=== PATIENT | male | born 1950 | race Caucasian/White ===

== ENCOUNTER 2020-05-04 06:09 | Day surgery (SDC) | payer OTHER, BC ==
--- NOTE | 2020-05-01 12:23 | RAD REPORT ---
EXAM DESCRIPTION: RAD - Chest Pa And Lat (2 Views) - 05/01/2020 12:13 pm CLINICAL HISTORY: pre op Chest pain. COMPARISON: No comparisons TECHNIQUE: PA and lateral views of the chest were obtained. FINDINGS: The lungs are hyperexpanded compatible with COPD. The heart is upper limit of normal in si ze. No fracture or aggressive bony process. IMPRESSION: COPD without acute process identified.
[2020-05-01 12:45] LABS: Absolute Lymphocytes (CBC) 1.8 K/uL (0.7-4.9); Basophils % 1.1 % (0-1.3); Lymphocytes % 30.4 % (15.3-44.8); MPV 9.1 fL (7.6-11.3)
[2020-05-01 12:49] LABS: Potassium 5.1 mmol/L (3.5-5.1)
[2020-05-01 12:50] LABS: Protime INR 0.88
[2020-05-04] MEDS ORDERED: NA CHLORIDE 0.9% 500 ML ONE (07:04)
[2020-05-04] MEDS ORDERED: HEPA 1000U/500MLS 1,000 UNIT/500 ML BAG IV ONE (07:24)
[2020-05-04] MEDS ORDERED: MIDAZOLAM HCL 2 MG/2 ML INJ ONE ×2 (07:25→07:43)
[2020-05-04] MEDS ORDERED: FENTANYL CITR 100 MCG/2 ML ONE ×2 (07:25→14:49)
[2020-05-04] MEDS ORDERED: LIDOCAINE 1% MPF 30 ML VIAL ONE (07:26)
[2020-05-04] MEDS ORDERED: ATROPINE SULF 1 MG/10 ML SYR IV ONE (07:26)
[2020-05-04] MEDS ORDERED: NA CHLORIDE 0.9% 50 ML ONE (07:26)
[2020-05-04] MEDS ORDERED: NITROGLYCERIN 100 MCG/ML SYR (for cath lab use only) IV ONE (08:07)
[2020-05-04] MEDS ORDERED: NITROGLYCERIN/D5W 25 MG/250 ML BTL IV ONE (08:07)
[2020-05-04] MEDS ORDERED: PRASUGREL (EFFIENT) 10 MG TAB ONE (08:22)
--- NOTE | 2020-05-04 15:35 | RAD REPORT ---
EXAM DESCRIPTION: US - Lower Extremity Artery Uni Ltd - 05/04/2020 3:06 pm CLINICAL HISTORY: Right groin for artereral closure Right groin pain COMPARISON: No comparisons FINDINGS: Right common femoral and superficial femoral artery show triphasic normal waveform. 3 cm l ow level echo fluid collection is seen in the groin without intralesional flow suspicious for a hemat johnathon.
[2020-05-04 16:01] VITALS: O2SAT 98
[2020-05-04] MEDS ORDERED: ACETAMINOPHEN 325 MG TABLET PO PRN (16:02)
[2020-05-04] MEDS ORDERED: NITROGLYCERIN 0.4 MG/TAB SL PRN (16:03)
[2020-05-04] MEDS ORDERED: HYDROCODONE/APAP 10/325 TAB PO PRN (16:08)
[2020-05-04] MEDS ORDERED: DIAZEPAM 5 MG TABLET PO PRN (16:09)
[2020-05-04] MEDS: NA CHLORIDE 0.9% 1,000 ML IV SCH (17:00)
[2020-05-04 17:23] VITALS: BMI 32.6
[2020-05-05 06:48] VITALS: BP 110/63; TEMP 97.6
[2020-05-05] MEDS: NA CHLORIDE 0.9% 1,000 ML IV SCH (07:18)
[2020-05-05] MEDS ORDERED: CLOPIDOGREL 75 MG TABLET PO SCH (09:00)
[2020-05-05] MEDS ORDERED: ASPIRIN EC 81 MG TAB PO SCH (09:00)
--- NOTE | 2020-05-08 21:57 | OP ---
Date of Procedure: 05/04/2020 Surgeon: Baldemar Silvestre MD Ice Plant Operator: Ryan Pulido. Procedure Performed: Left heart catheterization, selective coronary arteriogram and angioplasty and stent of the distal RCA. Indication: Coronary artery disease, chest pain and positive stress test. Mr. Santo is a 70-year-o ld white male with history of CAD, hypertension, dyslipidemia, diabetes with atypical chest pain and positive stress test was brought to the rd lab technician as an outpatient on 05/04/2020. Description Of Procedure: He was prepped and draped in the routine sterile fashion. He was given Ve rsed and fentanyl for IV sedation. A 10 cc xylocaine was injected superficially in the right common femoral artery lesion on the right side. A 6-Yi sheath was introduced using the Seldinger techni que. Christin catheter left and right were used to do the coronary angiography. He was found to have a large ectatic vessel in the LAD and the circumflex with some minimal diffuse atherosclerosis, but no significant stenosis. The JR4 catheter 6-Yi was used to inject the right main. It was found to have a 95% distal RCA stenosis. The patient was given Angiomax. A JR4 guide with 6-Yi with s john hole was used to cannulate the right main. A [place] wire was used to cross the lesion successful ly. Following that, a 2.5 x 12 Emerge balloon was used at 11 atmospheres multiple dilatation with ab out 40%-50% residual. Following that, a 3.5 x 16 Synergy stent was introduced distally, deployed wit h 0% residual. The patient tolerated the procedure well. There were no complications. Blood Loss: 5 mL. Postoperative Diagnosis: Coronary artery disease status post successful angioplasty and stent in the distal RCA. The patient received Angiomax. He received 60 mg of Effient, aspirin during the procedure. We will continue medical therapy otherwise. Anesthesia: Total conscious sedation was 45 minutes. Angiography in the right common femoral artery area was normal and StarClose was going to be used to close the case. The patient remained in the hospital overnight and he will he will be going home aubrey ow and he will see me in the office in the next week or so. He will continue his present medical regimen including Plavix. NB/MODL Voice ID: [id number] Report ID: [id number]
== END 2020-05-05 10:41 | disposition home or self-care (01) ==
LOC: CCL 06:09 → 2ND 16:06 → CCL 05-05 10:41
DX: I25.10 Atherosclerotic heart disease of native coronary artery without angina pectoris (principal); I10 Essential (primary) hypertension; E11.9 Type 2 diabetes mellitus without complications; E78.5 Hyperlipidemia, unspecified; J44.9 Chronic obstructive pulmonary disease, unspecified; E03.9 Hypothyroidism, unspecified; M10.9 Gout, unspecified; G62.9 Polyneuropathy, unspecified; E66.9 Obesity, unspecified; Z68.32 Body mass index [BMI] 32.0-32.9, adult; Z11.59 Encounter for screening for other viral diseases; Z79.02 Long term (current) use of antithrombotics/antiplatelets; Z79.82 Long term (current) use of aspirin; Z87.891 Personal history of nicotine dependence; Z88.8 Allergy status to other drugs, medicaments and biological substances
CPT/HCPCS: 85025; 80048; 36415; 85610; 82947 ×3; 85347 ×3; 85730; 71046; 93454; 93926; U0002; C1893; C1725; C9600; J2250 ×2; J3010 ×2; J0583; J7040; J1644

== ENCOUNTER 2025-08-08 09:48 | Emergency (ER) | payer OTHER, BC ==
--- NOTE | 2025-08-08 11:22 | RAD REPORT ---
EXAMINATION: TWO VIEW CHEST XR CLINICAL INDICATION: Male, 75 years old. [facility] MAIN COUGH Bed: TECHNIQUE: 2 view radiographs of the chest were performed. COMPARISON: 03/22/2025 FINDINGS: The lungs are hyperexpanded suggesting COPD. No pneumothorax or sizable effusion. The heart is normal in size. Mediastinal contours are unremarkable. IMPRESSION: No acute or significant abnormalities.
--- NOTE | 2025-08-08 11:26 | RAD REPORT ---
EXAM: CT Head Brain Wo Cont HISTORY: head, left facial pain, nasal/pharyngeal bleeding COMPARISON: None TECHNIQUE: Multiple contiguous axial images were obtained for a CT of the brain without contrast. Sag ittal and coronal reformats were performed. One or more of the following dose reduction techniques were used: Automated exposure control, adjus tment of the mA and kV according to patient size, and iterative reconstruction. Unless otherwise specified, incidental findings do not require dedicated imaging follow-up. FINDINGS: No evidence of hydrocephalus, intracranial hemorrhage, or extra-axial fluid collection. The brain is normal in morphology. The calvarium is intact. Small mucus retention cyst in the base of the right maxillary sinus. Mastoid air cells are essentially clear. IMPRESSION: No evidence of acute intracranial abnormality.
--- NOTE | 2025-08-08 11:39 | RAD REPORT ---
EXAM: CT Soft Tissue Neck Wo Contr INDICATION: [facility] MAIN nasal/pharyngeal bleeding, facial pain Bed Name: 15 TECHNIQUE: Helical CT examination of the neck without IV contrast. Sagittal and coronal reformations were generated. This exam was performed according to our departmental dose-optimization program, which includes automated exposure control, adjustment of the mA and/or kV according to patient size a nd/or use of iterative reconstruction technique. COMPARISON: None. FINDINGS: Mucosal spaces: Asymmetric nodular soft tissue thickening on the left at the base of the epiglottis a nd aryepiglottic fold. Adjacent fat planes appear preserved. Noncontrast evaluation limits assessment. Nasopharynx, oropharynx, oral cavity, and hypopharynx are otherwise unremarkable. No susp icious masses. True vocal cords cords are normally situated. Piriform sinuses are well-aerated. Lymph Nodes: Mildly prominent left level 3/4 and lymph nodes interposed between the internal jugular vein and sternocleidomastoid measuring 8 mm in short axis. Mildly prominent right level 4 lymph node just lateral to the internal jugular vein measuring 9 mm in short axis. Salivary Glands: Unremarkable. Thyroid Gland: Normal Included Intracranial Structures: Normal Included Orbits: Normal Paranasal Sinuses: Predominantly clear Tympanomastoid Cavities: Normal Vascular Structures: Normal Osseous Structures: No acute osseous abnormality. Included Lung Apices: Advanced emphysematous changes in the upper lungs. IMPRESSION: Asymmetric nodular soft tissue thickening on the left at the base of the epiglottis and aryepiglottic folds. Although assessment is limited on noncontrast evaluation, this raises concern for possible malignant lesion. Please consider ENT evaluation and/or fiber optic laryngoscopy. Mildly prominent bilateral lower cervical lymph nodes as above, indeterminate.
--- NOTE | 2025-08-08 12:11 | ER ---
Nurse's Notes [facility] Name: Dagoberto Santo Age: 75 yrs Sex: Male : 1950 Arrival Date: 08/08/2025 Time: 09:48 Bed 15 Private MD: Diagnosis: Hemoptysis Presentation: 08/08 10:08 Chief complaint: Bloody sinus drainage x 2 days, left ear and left sided facial pain x hb weeks. Coronavirus screen: At this time, the client does not indicate any symptoms associated with coronavirus-19. Ebola Screen: No symptoms or risks identified at this time. Initial Sepsis Screen: Does the patient meet any 2 criteria? No. Patient's initial sepsis screen is negative. Does the patient have a suspected source of infection? No. Patient's initial sepsis screen is negative. Risk Assessment: Do you want to hurt yourself or someone else? Patient reports no desire to harm self or others. 10:08 Method Of Arrival: Ambulatory hb 10:08 Acuity: FERMÍN 3 hb 10:10 Onset of symptoms was July 2025. hb Historical: - Allergies: 10:10 STATINS HMG COA REDUCTASE INHIBITORS; hb - Immunization history:: Adult Immunizations up to date. - Infectious Disease History:: Denies. - Family history:: not pertinent. - Social history:: Smoking status: unknown. - Hospitalizations: : No recent hospitalization is reported. Screenin:55 [facility] ED Fall Risk Assessment (Adult) History of falling in the last 3 months, hh1 including since admission No falls in past 3 months (0 pts) Confusion or Disorientation No (0 pts) Intoxicated or Sedated No (0 pts) Impaired Gait No (0 pts) Mobility Assist Device Used No (0 pt) Altered Elimination No (0 pt) Score/Fall Risk Level 0 - 2 = Low Risk Oriented to surroundings, Maintained a safe environment, Educated pt \T\ family on fall prevention, incl call for assistance when getting out of bed, Assessed \T\ reinforced patient's understanding of fall precautions, Hourly rounding (assess needs \T\ fall precautionary measures) done, Used ambulatory aids as needed (educated on \T\ assisted with). Abuse screen: Denies threats or abuse. Denies injuries from another. Nutritional screening: No deficits noted. Tuberculosis screening: No symptoms or risk factors identified. Assessment: 12:13 General: Appears in no apparent distress. Behavior is cooperative. Pain: Complains of kj2 pain in left ear pain Pain currently is 3 out of 10 on a pain scale. Neuro: Level of Consciousness is awake, alert, obeys commands, Oriented to person, place, time, situation, Appropriate for age. Cardiovascular: Patient's skin is warm and dry. Respiratory: Airway is patent Respiratory effort is unlabored. GI: No signs and/or symptoms were reported involving the gastrointestinal system. : No signs and/or symptoms were reported regarding the genitourinary system. EENT: Reports nasal drainage. 12:25 Reassessment: patient refused discharge vital signs. kj2 Vital Signs: 10:08 BP 168 / 107; Pulse 88; Resp 16; Temp 97.7; Pulse Ox 97% on R/A; hb ED Course: 09:50 Patient arrived in ED. im 09:51 Josiah Mckeon MD is Attending Physician. rn 10:10 Triage completed. hb 10:11 Arm band placed on. hb 10:26 Angelita Mantilla, RN is Primary Nurse. hh1 10:[address] via wheelchair. hh1 10:28 Radiology exam delayed due to PATIENT IN CT, WILL GET THEM WHEN THEY FINISH SCAN. md2 10:36 CT Head Brain wo Cont In Process Unspecified. EDMS 10:36 Soft Tissue Neck Wo Contr In Process Unspecified. EDMS 10:48 Patient moved back from radiology. md2 10:49 XRAY Chest Pa And Lat (2 Views) In Process Unspecified. EDMS 10:55 Patient has correct armband on for positive identification. Bed in low position. Call 1 light in reach. 10:55 No provider procedures requiring assistance completed. hh1 12:10 Lucila Anna MD is Referral Physician. rn 12:15 Patient did not have IV access during this emergency room visit. kj2 12:16 Provided Education on: discharge instructions reviewed. kj2 Administered Medications: No medications were administered Medication: 10:55 VIS not applicable for this client. hh1 Outcome: 12:10 Discharge ordered by . rn 12:15 Discharged to home ambulatory, kj2 12:15 Condition: stable 12:15 Discharge instructions given to patient, family, Instructed on discharge instructions, follow up and referral plans. Demonstrated understanding of instructions, follow-up care, 12:26 Patient left the ED. kj2 Signatures: Dispatcher [employer] EDJosiah Irwin MD MD rn Baxter, Heather, JOSE RN Dariana Eaton Itzel im Jordan, Krystal, RN RN kj2 Angelita Mantilla, JOSE RN hh1 Corrections: (The following items were deleted from the chart) 10:11 10:08 Chief complaint: Coughing up blood x 2 days hb hb
--- NOTE | 2025-08-08 12:11 | EDPHYS ---
Physician Documentation [facility] Name: Dagoberto Santo Age: 75 yrs Sex: Male : 1950 Arrival Date: 08/08/2025 Time: 09:48 Bed 15 Private MD: ED Physician Josiah Mckeon HPI: 08/08 10:59 This 75 yrs old Male presents to ER via Ambulatory with complaints of Nasal Drainage, rn Cough - Blood. 10:59 Patient reports has sinus drainage that is bloody, is draining to the back of throat rn and causing him to cough up blood. Reports left-sided facial pain and has been treated with antibiotics for ear infection for 2 weeks. No headache. Takes Plavix. Patient denies blood running from anterior nose.. Historical: - Allergies: 10:10 STATINS HMG COA REDUCTASE INHIBITORS; hb - Immunization history:: Adult Immunizations up to date. - Infectious Disease History:: Denies. - Family history:: not pertinent. - Social history:: Smoking status: unknown. - Hospitalizations: : No recent hospitalization is reported. ROS: 10:59 Constitutional: Negative for fever, chills, and weight loss, ENT: Positive for rn postnasal drip and bloody secretions Respiratory: Positive for coughing up blood, feels like it is from back of throat, not lungs Abdomen/GI: Negative for abdominal pain, nausea, vomiting, diarrhea, and constipation, Exam: 10:59 Constitutional: This is a well developed, well nourished patient who is awake, alert, rn and in no acute distress. ENT: Dried blood anterior naris bilaterally without mass or active bleeding noted. Mild left maxillary sinus tenderness. No asymmetric swelling of face Respiratory: Speaking full sentences, unlabored. Vital Signs: 10:08 BP 168 / 107; Pulse 88; Resp 16; Temp 97.7; Pulse Ox 97% on R/A; hb MDM: 09:51 Medical Screening Exam initiated rn 12:09 Differential Diagnosis: Other Malignancy, posterior pharyngeal bleeding. Data reviewed: rn vital signs, nurses notes, radiologic studies, CT scan, and as a result, I will discharge patient. Consideration of Admission/Observation Escalation of care including admission/observation considered. Admission considered with ENT consultation but I spoke with Dr. Anna, she has more Clement in the clinic and prefers to see him today at 2 PM. Management of patient was discussed with the following: Immigration Judge: Discussed case with Dr. Anna, prefers to see patient in clinic at 2 PM today for further evaluation. Counseling: I had a detailed discussion with the patient and/or guardian regarding the historical points, exam findings, and any diagnostic results supporting the discharge/admit diagnosis, radiology results, the need for outpatient follow up, to return to the emergency department if symptoms worsen or persist or if there are any questions or concerns that arise at home. 12:09 ED course: Explained to patient the chance of this being malignancy given hemoptysis rn and asymmetric swelling near the epiglottis with lymphadenopathy. The lymphadenopathy could explain his left facial and ear/neck pain. Will see Dr. Anna today at 2 PM for possible scope and further evaluation.. 08/08 09:52 Order name: XRAY Chest Pa And Lat (2 Views); Complete Time: 11:42 rn 08/08 10:17 Order name: CT Head Brain wo Cont; Complete Time: 11:42 rn 08/08 10:31 Order name: Soft Tissue Neck Wo Contr; Complete Time: 11:42 EDMS Administered Medications: No medications were administered Disposition Summary: 08/08/25 12:10 Discharge Ordered Notes: Location: Home rn Problem: new rn Symptoms: have improved rn Condition: Stable rn Diagnosis - Hemoptysis rn Followup: rn - With: Lucila Anna MD - When: Upon discharge from the Emergency Department - Reason: Recheck today's complaints, Continuance of care, Re-evaluation by your physician Discharge Instructions: - Discharge Summary Sheet rn - Hemoptysis rn Forms: - Medication Reconciliation Form rn - Antibiotic nutrition intern - Prescription Opioid Use rn - Patient Portal Instructions rn - Leadership Thank You Letter rn Signatures: Dispatcher [employer] EDMS Josiah Mckeon MD MD rn Baxter, Heather, RN RN Angelita Mantilla RN RN hh1 Corrections: (The following items were deleted from the chart) 10:31 10:17 Facial Bones W/ [id number] ordered. EDMS EDMS
[2025-08-08 14:09] VITALS: BP 168/107; TEMP 97.7; O2SAT 97
== END 2025-08-08 12:26 | disposition home or self-care (01) ==
LOC: ER 09:48
DX: R04.2 Hemoptysis (principal); R59.0 Localized enlarged lymph nodes; R05.9 Cough, unspecified
CPT/HCPCS: 70450; 70490; 71046; 99284

== ENCOUNTER 2025-08-11 07:05 | Day surgery (SDC) | payer OTHER, BC ==
[2025-08-10 15:26] LABS: Absolute Lymphocytes (CBC) 1.6 K/uL (0.7-4.9); Hematocrit 46.2 % (39.6-49.0); Hemoglobin 15.1 g/dL (13.6-17.9); MCH 29.0 pg (27.0-35.0); MCHC 32.8 g/dL (32.0-36.0); MCV 88.2 fL (80-100); MPV 7.8 fL (7.6-11.3); Nucleated RBC Absolute Count 0.0 (0-0); Nucleated Red Blood Cells % 0.1 % (0-0); RBC Red Blood Cell Count 5.23 M/uL (4.33-5.43); White Blood Count 6.40 thou/uL (4.3-10.9)
[2025-08-10 15:35] LABS: PT Prothrombin Time 12.4 SECONDS (10-13.0); PTT, Activated Partial Thromb 28.2 SECONDS (27.2-37.4); Protime INR 1.1
[2025-08-10 15:41] LABS: Anion Gap 11.2 mEq/L (5.0-15.0); BUN Blood Urea Nitrogen 28.0 mg/dL (7-18); Glucose Level 166.0 mg/dL (74-106); Potassium 5.2 mEq/L (3.5-5.1)
[2025-08-11] MEDS: NA CHLORIDE 0.9% 1,000 ML ONE (07:50)
[2025-08-11] MEDS ORDERED: ONDANSETRON 4 MG/2 ML VIAL ONE ×2 (08:20→08:46)
[2025-08-11] MEDS ORDERED: LIDOCAINE 1% MPF 5 ML VIAL ONE (08:20)
[2025-08-11] MEDS ORDERED: FENTANYL CITR 100 MCG/2 ML ONE ×2 (08:20→08:46)
[2025-08-11] MEDS ORDERED: MIDAZOLAM HCL 2 MG/2 ML INJ ONE ×2 (08:21→08:46)
[2025-08-11] MEDS ORDERED: ROCURONIUM 50 MG/5 ML VIAL IV ONE ×2 (08:21→08:47)
[2025-08-11] MEDS ORDERED: GLYCOPYRROLATE 0.2 MG/ML SYR ONE (08:21)
[2025-08-11] MEDS ORDERED: KETOROLAC 30 MG/ML INJ ONE (08:46)
[2025-08-11] MEDS ORDERED: LIDOCAINE 2% MPF 5 ML VIAL ONE (08:47)
[2025-08-11] MEDS ORDERED: LIDOCAINE HCL/EPINEPHRINE 20 ML MDV ONE (08:57)
[2025-08-11] MEDS ORDERED: EPINEPHRINE 1 MG/ML VIAL ONE (08:57)
[2025-08-11] MEDS: OXYMETAZOLINE HCL 0.05% 30ML NAS ONE (10:00)
[2025-08-11] MEDS ORDERED: ESMOLOL HCL 10 ML IV ONE (10:07)
[2025-08-11] MEDS: ACETAMINOPHEN 325 MG TABLET ONE (11:30)
[2025-08-11 12:39] VITALS: BP 162/87; TEMP 97.2; O2SAT 96
--- NOTE | 2025-08-15 19:35 | OP ---
Date of Procedure: 08/11/2025 Surgeon: Caitie Anna Preoperative Diagnosis: Neoplasm of uncertain behavior of epiglottis and hemoptysis, uncertain origin. Postoperative Diagnoses: 1. Moderately differentiated squamous cell carcinoma, epiglottis. 2. Benign inflammation, left base of tongue. 3. Hemoptysis. Procedures: 1. Flexible bronchoscopy-diagnostic. 2. Diagnostic esophagogastroduodenoscopy. 3. Microscopic direct laryngoscopy with biopsies of epiglottis and left base of tongue. Anesthesia: General endotracheal anesthesia was administered. Specimens: Obtained from left base of tongue and epiglottis. Estimated Blood Loss: Less than 5 mL. Findings: Suspicious ulcerative neoplasm involving the lingual and laryngeal edges of the left epiglottis and possibly extending into the left base of tongue. Complications: None. Disposition: Stable. The patient tolerated the procedure well. Indications For Procedure: The patient is a 75-year-old male, who presented to my outpatient clinic with hemoptysis. He initially presented to the emergency room and a CT scan was performed, which revealed asymmetry at the level of the epiglottis. Upon flexible laryngoscopic exam in my office, the patient appeared to have an ulcerative mass involving the left laryngeal side and lingual surface of the epiglottis and possibly extending into the left base of tongue. These were indications to bring the patient to operative suite for the above-mentioned procedure. He understood, all questions were answered. Risks versus benefits, complications were explained in detail and a consent form was signed, was placed in the chart. Description Of Procedure: The patient was transferred from the preoperative holding area to the operative suite by Department of Anesthesia and placed on the operating room table supine, sedated and intubated in normal fashion. A flexible bronchoscope was introduced into the endotracheal tube and advanced to the level of the falguni. Examination of the right and left mainstem bronchi did not reveal any lesions or ulcers or suspicious nodules. I advanced into the lower segment bronchials bilaterally and I did not detect any abnormalities whatsoever. The scope was completely withdrawn through the endotracheal tube. The tube was then exchanged for a smaller 6 mm tube. I then performed the EGD by advancing the scope while insufflating and once passed the cricopharyngeus, I was able to easily advance below of the stomach. The patient's gastric rugae were normal appearing. There was no evidence of acid, ulceration, or neoplasms. I then advanced to the duodenum and I did not detect any abnormalities whatsoever. I did a retroflexion, and examined the more challenging areas of the stomach rugae and there was no evidence of any lesions or masses. I then withdrew the scope to the level of the Z-line and the gastroesophageal junction. I did not detect any abnormalities, ulceration, erythema, or edema. The scope was then slowly withdrawn while suctioning air. I did not detect any abnormalities at the distal, middle, or proximal esophagus. The scope was completely removed. Next, I inserted a rigid laryngoscope over the endotracheal tube and I suspended the scope in place while examining the epiglottis and base of tongue. Multiple biopsies were taken of the laryngeal and lingual surfaces of the epiglottis as well as the left base of tongue. Frozen section analysis of an epiglottic biopsy revealed atypical squamous cells. I then resuspended the scope after hemostasis was achieved with Afrin-soaked pledgets. Bimanual palpation exam of the oral cavity and oropharynx, floor of mouth, and vestibular buccal mucosa did not reveal any additional lesions. I also do not detect any neck lymphadenopathy upon palpation. The patient was then transferred back to the Department of Anesthesia and discharged home and will follow up in 1-2 weeks or sooner if needed. GORDON/JAYLEN Voice ID: [id number] Report ID: [id number] [id number]
== END 2025-08-11 12:10 | disposition home or self-care (01) ==
LOC: OR 07:05
PROVIDERS: ATTEND Otolaryngology Facial Plastic Surgery
PROC: 0CBR8ZX Excision of Epiglottis, Via Natural or Artificial Opening Endoscopic, Diagnostic (ICD-10-PCS; 2025-08-11)
PROC: 0CBM8ZX Excision of Pharynx, Via Natural or Artificial Opening Endoscopic, Diagnostic (ICD-10-PCS; 2025-08-11)
PROC: 0BJ08ZZ Inspection of Tracheobronchial Tree, Via Natural or Artificial Opening Endoscopic (ICD-10-PCS; principal; 2025-08-11 08:30)
PROC: 0DJ08ZZ Inspection of Upper Intestinal Tract, Via Natural or Artificial Opening Endoscopic (ICD-10-PCS; 2025-08-11 08:30)
DX: C32.1 Malignant neoplasm of supraglottis (principal); R04.2 Hemoptysis; R05.9 Cough, unspecified; Z79.01 Long term (current) use of anticoagulants
CPT/HCPCS: 31622; 43235; 31536; 85025; 80048; 36415; 85610; 82947 ×2; 88305 ×2; 85730; J1885; J2704; J2003; J2250; J3010; J1100; J2405; J7030; J0169